=== PATIENT | female | born 1980 | race Asian ===

== ENCOUNTER 2017-04-25 10:15 | Emergency (ER) | payer BC ==
[~2017-04-25] VITALS: Ht 154.9 cm; Wt 99.8 kg
[~2017-04-25 10:15] MED LIST: ATEN50TA36 PO; CELEXA10 MG OR; CYCL10TA35 PO; FLUT0.05 NAS; HYDR25TA60 PO; IBUP800T30 PO; PROTONIX PO; RANI150T78 PO
[2017-04-25 11:22] VITALS: BP 140/83; TEMP 98.6
== END 2017-04-25 11:33 | disposition home or self-care (01) ==
LOC: ED 10:15
DX: M25.561 Pain in right knee (principal)
CPT/HCPCS: 99281

== ENCOUNTER 2018-06-23 09:17 | Outpatient (CLI) | payer BC | END 2018-06-23 22:39 | disposition home or self-care (01) | LOC: US 09:17 | DX: R22.2 Localized swelling, mass and lump, trunk (principal) ==

== ENCOUNTER 2022-05-02 11:09 | Outpatient (CLI) | payer OTHER | END 2022-05-02 21:21 | disposition home or self-care (01) | LOC: MAMMO 11:09 | PROVIDERS: ATTEND Nurse Practitioner Family | DX: Z12.31 Encounter for screening mammogram for malignant neoplasm of breast (principal) ==

== ENCOUNTER 2023-05-21 00:35 | Emergency (ER) | payer OTHER ==
[~2023-05-21] VITALS: Ht 157.5 cm; Wt 102.1 kg
[2023-05-21 02:04] VITALS: BP 143/94; TEMP 97.8
== END 2023-05-21 02:04 | disposition home or self-care (01) ==
LOC: ED 00:35
DX: B02.9 Zoster without complications (principal)
CPT/HCPCS: 93005; 99282

== ENCOUNTER 2023-05-26 12:00 | Outpatient (CLI) | payer OTHER | END 2023-05-26 19:08 | disposition home or self-care (01) | LOC: MAMMO 12:00 | PROVIDERS: ATTEND Nurse Practitioner Family | DX: N63.13 Unspecified lump in the right breast, lower outer quadrant (principal) | CPT/HCPCS: G0279 ==

== ENCOUNTER 2023-06-05 09:35 | Outpatient (CLI) | payer OTHER | END 2023-06-05 19:13 | disposition home or self-care (01) | LOC: RAD 09:35 | PROVIDERS: ATTEND Nurse Practitioner Family | DX: M25.531 Pain in right wrist (principal) ==